=== PATIENT | female | born 1995 | race Hispanic/Latino ===

== ENCOUNTER 2019-04-29 00:17 | Emergency (ER) | payer SELFPAY ==
[2019-04-29] MEDS ORDERED: hydrOXYzine 25 MG/ML VIAL IM SCH (01:00)
== END 2019-04-29 03:00 | disposition home or self-care (01) ==
LOC: ERS 00:17
DX: H93.19 Tinnitus, unspecified ear (principal); I10 Essential (primary) hypertension
CPT/HCPCS: 36416; 93005; 96372; J3410